=== PATIENT | male | born 1950 | race Caucasian/White ===

== ENCOUNTER 2017-02-24 15:07 | Emergency (ER) | payer BC, OTHER ==
[2017-02-24 15:22] VITALS: TEMP 97.8; BMI 31.0
--- NOTE | 2017-02-24 15:26 | PDOC ---
History of Present Illness - General Chief Complaint: Pain, Acute Stated Complaint: KIDNEY STONES Time Seen by Provider: 02/24/17 15:25 History Source: Patient Exam Limitations: No Limitations - History of Present Illness Initial Comments: 02/24/17 15:26 CHIEF COMPLAINT: Flank pain HISTORY OF PRESENT ILLNESS: This is a 66-year-old male with a history of non- insulin-dependent diabetes, hypertension, and kidney stones (5 prior episodes, never required any intervention and was able to pass the stones on his own) the presents with flank pain typical of his usual renal colic. He had sudden onset of pain yesterday and it has since been waxing and waning. He denies nausea/ vomiting, fevers/chills, dysuria/hematuria, or any other symptoms. PCP is Dr. Farmer. Vital signs on arrival are unremarkable. REVIEW OF SYSTEMS: GENERAL/CONSTITUTIONAL: No fever or chills. No weakness. No weight change. HEAD, EYES, EARS, NOSE AND THROAT: No change in vision. No ear pain or discharge. No sore throat. CARDIOVASCULAR: No chest pain or palpitations. RESPIRATORY: No cough, wheezing, or shortness of breath. GASTROINTESTINAL: No nausea, vomiting, diarrhea or constipation. GENITOURINARY: See HPI. MUSCULOSKELETAL: No joint or muscle swelling or pain. No neck or back pain. SKIN: No rash or easy bruising. NEUROLOGIC: No headache, vertigo, loss of consciousness, or loss of sensation. PSYCHIATRIC: No depression or anxiety. ENDOCRINE: No increased thirst. No abnormal weight change. HEMATOLOGIC/LYMPHATIC: No anemia, easy bleeding, or history of blood clots. ALLERGIC/IMMUNOLOGIC: No hives or skin allergy. No latex allergy. PHYSICAL EXAM: GENERAL: The patient is awake, alert, and fully oriented, in no acute distress. HEAD: Normal with no signs of trauma. ENT: Pupils equal, round and reactive to light, extraocular movements intact, sclera anicteric, conjunctiva clear. Neck supple. LUNGS: Clear to auscultation bilaterally. Normal excursion. No respiratory distress or use of accessory muscles. CV: RRR, S1/S2, no MRG. Cap refill < 2 sec. ABDOMEN: Soft, non-distended, non-tender anteriorly, mild left CVA tenderness. EXTREMITIES: Normal range of motion, no edema. NEUROLOGICAL: Normal speech, normal gait. CN II-XII grossly intact. PSYCH: Normal mood, normal affect. SKIN: Warm, dry, normal turgor, no rashes or lesions noted. Past History - Past Medical History Allergies/Adverse Reactions: Allergies Allergy/AdvReac Type Severity Reaction Status Date / Time latex Allergy Mild Rash Verified 02/24/17 15:22 No Known Drug Allergies Allergy Verified 02/24/17 15:22 Home Medications: Ambulatory Orders Atenolol [Tenormin] 25 mg PO HS 04/21/12 Cholecalciferol (Vitamin D3) [Vitamin D] 7,000 unit PO DAILY 04/21/12 Fenofibrate 160 mg PO HS 04/21/12 Simvastatin [Zocor] 20 mg PO HS 04/21/12 Metformin HCl [Metformin HCl ER] 500 mg PO BID 02/24/17 Tamsulosin HCl [Flomax -] 0.4 mg PO DAILY #5 cap.er.24h 02/24/17 Anemia: No Asthma: No Cancer: Yes (SKIN CANCER) Cardiac Disorders: No CVA: No COPD: No CHF: No Dementia: No Diabetes: No GI Disorders: No Disorders: No HTN: Yes Hypercholesterolemia: Yes Liver Disease: No Seizures: No Thyroid Disease: No - Surgical History Abdominal Surgery: No Appendectomy: No Cardiac Surgery: No Cholecystectomy: No Lung Surgery: No Neurologic Surgery: No Orthopedic Surgery: No - Psycho/Social/Smoking Cessation Hx Suicidal Ideation: No Smoking History: Never smoked Have you smoked in the past 12 months: No If you are a former smoker, when did you quit?: 26 YRS AGO Information on smoking cessation initiated: No Hx Alcohol Use: No Drug/Substance Use Hx: No Substance Use Type: None *Physical Exam - Vital Signs Last Vital Signs Temp Pulse Resp BP Pulse Ox 97.8 F 81 18 143/81 100 02/24/17 15:16 02/24/17 15:16 02/24/17 15:16 02/24/17 15:16 02/24/17 15:16 ED Treatment Course - LABORATORY CBC & Chemistry Diagram: 02/24/17 15:53 02/24/17 15:53 Medical Decision Making - Medical Decision Making 02/24/17 19:22 A/P: 66 year old male with flank pain typical of prior episodes of renal colic. 1. Toradol 30mg IVP 2. UA/culture, basic labs 3. Renal u/s U/s reviewed and interpreted by Imaging chief [facility]: no hydronephrosis. Will dc with analgesia and urology followup. Return precautions reviewed. *DC/Admit/Observation/Transfer Diagnosis at time of Disposition: Flank pain - Discharge Dispostion Admit: No - Prescriptions Prescriptions: Tamsulosin HCl [Flomax -] 0.4 mg PO DAILY #5 cap.er.24h - Referrals Referrals: Dawit Fletcher MD [Staff Physician] - Call tomorrow (Urology) - Patient Instructions Printed Discharge Instructions: DI for Kidney Stones Additional Instructions: -Rest and stay well-hydrated -Take Percocet as prescribed for pain and Flomax as prescribed to help the stone pass -Follow up with urology (contact information enclosed) -Return here for uncontrolled pain, fever, or any other concerning symptoms - Post Discharge Activity Work/School Note: Back to Work
[2017-02-24 16:00] LABS: BASOPHIL 0.8 % (0-2.0); EOSINOPHIL 2.5 % (0-4.5); MCH 29.4 pg (25.7-33.7); MCHC 34.9 g/dl (32.0-35.9); MEAN CELL VOLUME 84.3 fl (80-96); MEAN PLT VOLUME 9.6 fl (7.5-11.1); NEUTROPHILS 60.1 % (42.8-82.8); PLATELET COUNT 218 K/MM3 (134-434); RDW 13.8 % (11.9-15.9); WHITE BLOOD COUNT 8.8 K/mm3 (4.0-10.0)
[2017-02-24] MEDS ORDERED: TAMSULOSIN HCL 0.4 MG CAP.ER.24H (FP) PO ONE (16:01)
[2017-02-24] MEDS ORDERED: KETOROLAC TROMETHAMINE 30 MG/1 ML VIAL IVPUSH ONE (16:06)
[2017-02-24] MEDS ORDERED: TAMSULOSIN HCL 0.4 MG CAP.ER.24H (FP) ONE (16:07)
[2017-02-24] MEDS ORDERED: KETOROLAC TROMETHAMINE 30 MG/1 ML VIAL ONE (16:07)
[2017-02-24 16:14] LABS: URINE APPEARANCE CLEAR; URINE BILIRUBIN NEGATIVE (NEGATIVE); URINE BLOOD 3+ (NEGATIVE); URINE COLOR YELLOW; URINE GLUCOSE (UA) NEGATIVE (NEGATIVE); URINE KETONE NEGATIVE (NEGATIVE); URINE LEUK ESTERASE NEGATIVE (NEGATIVE); URINE NITRITE NEGATIVE (NEGATIVE); URINE PROTEIN NEGATIVE (NEGATIVE); URINE UROBILINOGEN NEGATIVE mg/dL (0.2-1.0)
[2017-02-24 16:25] LABS: ALBUMIN 4.2 g/dl (3.4-5.0); ALK PHOS 57 U/L (45-117); ANION GAP 11 (8-16); BILIRUBIN,TOTAL 0.7 mg/dL (0.2-1.0); CALCIUM 10.3 mg/dL (8.5-10.1); CO2 28 mmol/L (21-32); CREATININE 1.2 mg/dL (0.7-1.3); GLUCOSE,RANDOM 180 mg/dL (74-106); SGOT/AST 21 U/L (15-37); SGPT/ALT 31 U/L (12-78); TOT PROT 7.7 g/dl (6.4-8.2)
[2017-02-24 16:26] LABS: URINE MUCUS RARE; URINE RBC 75 /hpf (0-3); URINE WBC 3 /hpf (3-5)
[2017-02-24] MEDS ORDERED: SODIUM CHLORIDE 1,000 ML IV SCH (17:00)
[2017-02-24 19:33] VITALS: BP 138/72; PULSE 72
== END 2017-02-24 19:39 | disposition home or self-care (01) ==
LOC: JER 15:07
PROC: 3E0333Z Introduction of Anti-inflammatory into Peripheral Vein, Percutaneous Approach (ICD-10-PCS; principal; 2017-02-24)
PROC: 3E0337Z Introduction of Electrolytic and Water Balance Substance into Peripheral Vein, Percutaneous Approach (ICD-10-PCS; 2017-02-24)
DX: R10.32 Left lower quadrant pain (principal); Z87.442 Personal history of urinary calculi; E11.9 Type 2 diabetes mellitus without complications; I10 Essential (primary) hypertension
CPT/HCPCS: 36415; 76775-TC; 80053; 81003; 81015; 85025; 87086; 99283-25

== ENCOUNTER 2017-02-25 19:01 | Emergency (ER) | payer BC ==
[2017-02-25 19:04] VITALS: BP 129/72; PULSE 82; TEMP 97; BMI 31.0
--- NOTE | 2017-02-25 20:19 | PDOC ---
History of Present Illness - General Chief Complaint: Pain, Acute Stated Complaint: PAIN, ACUTE Time Seen by Provider: 02/25/17 20:17 - History of Present Illness Initial Comments: 02/25/17 20:41 Mr. Quigley is a 66 year old male with a significant past medical history of NIDDM, HTN, and frequent kidney stones who presents to the emergency department with flank pain typical of his usual colic. He had onset of pain 2 days ago that has been more or less constant. He presented to the ED yesterday for this same problem but said he did not achieve much relief and was nauseated with 2 instances of vomit today. He also reports being currently chilled. The patient denies chest pain, shortness of breath, headache and dizziness. Denies fever, diarrhea and constipation. Denies dysuria, frequency, urgency and hematuria. Allergies: latex Past surgical history: Denies Social history: approximate 17 pack year smoking history (former smoker) REHANAD - Talib Farmer Past History - Past Medical History Allergies/Adverse Reactions: Allergies Allergy/AdvReac Type Severity Reaction Status Date / Time latex Allergy Mild Rash Verified 02/25/17 19:05 No Known Drug Allergies Allergy Verified 02/25/17 19:05 Home Medications: Ambulatory Orders Atenolol [Tenormin] 25 mg PO HS 04/21/12 Cholecalciferol (Vitamin D3) [Vitamin D] 7,000 unit PO DAILY 04/21/12 Fenofibrate 160 mg PO HS 04/21/12 Simvastatin [Zocor] 20 mg PO HS 04/21/12 Metformin HCl [Metformin HCl ER] 500 mg PO BID 02/24/17 Oxycodone HCl/Acetaminophen [Percocet 5-325 mg Tablet] 1 tab PO Q6H #30 tablet MDD 4 02/24/17 Tamsulosin HCl [Flomax -] 0.4 mg PO DAILY #5 cap.er.24h 02/24/17 Ondansetron HCl [Zofran] 4 mg PO PRN PRN #20 tablet 02/25/17 Anemia: No Asthma: No Cancer: Yes (SKIN CANCER) Cardiac Disorders: No CVA: No COPD: No CHF: No Dementia: No Diabetes: No GI Disorders: No Disorders: No HTN: Yes Hypercholesterolemia: Yes Liver Disease: No Seizures: No Thyroid Disease: No - Surgical History Abdominal Surgery: No Appendectomy: No Cardiac Surgery: No Cholecystectomy: No Lung Surgery: No Neurologic Surgery: No Orthopedic Surgery: No - Psycho/Social/Smoking Cessation Hx Suicidal Ideation: No Smoking History: Never smoked Have you smoked in the past 12 months: No If you are a former smoker, when did you quit?: 26 YRS AGO Information on smoking cessation initiated: No Hx Alcohol Use: No Drug/Substance Use Hx: No Substance Use Type: None Review of Systems - Review of Systems Comments:: 02/25/17 21:22 GENERAL/CONSTITUTIONAL: +Current chills. No fever. No weakness. HEAD, EYES, EARS, NOSE AND THROAT: No change in vision. No ear pain or discharge. No sore throat. CARDIOVASCULAR: No chest pain or shortness of breath RESPIRATORY: No cough, wheezing, or hemoptysis. GASTROINTESTINAL: +Nausea with 2 episodes of vomiting today. No diarrhea or constipation. GENITOURINARY: +Left flank pain with some LLQ pain. No dysuria, frequency, or change in urination. MUSCULOSKELETAL: No joint or muscle swelling or pain. No neck or back pain. SKIN: No rash NEUROLOGIC: No headache, vertigo, loss of consciousness, or change in strength/ sensation. ENDOCRINE: No increased thirst. No abnormal weight change HEMATOLOGIC/LYMPHATIC: No anemia, easy bleeding, or history of blood clots. ALLERGIC/IMMUNOLOGIC: No hives or skin allergy. *Physical Exam - Vital Signs Last Vital Signs Temp Pulse Resp BP Pulse Ox 97 F L 82 18 129/72 98 02/25/17 19:02 02/25/17 19:02 02/25/17 19:02 02/25/17 19:02 02/25/17 19:02 - Physical Exam Comments: 02/25/17 21:25 GENERAL: Awake, alert, and fully oriented, in no acute distress HEAD: No signs of trauma, normocephalic, atraumatic EYES: PERRLA, EOMI, sclera anicteric, conjunctiva clear ENT: Auricles normal inspection, hearing grossly normal, nares patent, oropharynx clear without exudates. Moist mucosa NECK: Normal ROM, supple, no lymphadenopathy, JVD, or masses LUNGS: No distress, speaks full sentences, clear to auscultation bilaterally HEART: Regular rate and rhythm, normal S1 and S2, no murmurs, rubs or gallops, peripheral pulses normal and equal bilaterally. ABDOMEN: +Some tenderness to L flank and LLQ. Normoactive bowel sounds. No guarding, no rebound. No masses EXTREMITIES: Normal inspection, Normal range of motion, no edema. No clubbing or cyanosis. NEUROLOGICAL: Cranial nerves II through XII grossly intact. Normal speech, normal gait, no focal sensorimotor deficits SKIN: Warm, Dry, normal turgor, no rashes or lesions noted. ED Treatment Course - LABORATORY CBC & Chemistry Diagram: 02/25/17 20:49 02/25/17 20:49 Medical Decision Making - Medical Decision Making 02/25/17 21:19 Mr. Quigley represents after the percocet he was proscribed yesterday for pain control only made him more nauseated today. Repeated CBC/CMP/UA as well as ordered 1 L NS and Zofran for nausea. Reports some alleviation of his nausea and pain post zofran. Currently awaiting urine for UA. UA unimpressive. Pain subsided. Will d/c to home with PO zofran for nausea control. *DC/Admit/Observation/Transfer Diagnosis at time of Disposition: Flank pain - Discharge Dispostion Disposition: HOME - Referrals Referrals: Talib Farmer MD [Primary Care Provider] - - Patient Instructions Printed Discharge Instructions: DI for Flank Pain Additional Instructions: Please return if any fever, increase in pain/nausea, or any other concerning symptoms. - Attestations Physician Attestion: 02/25/17 22:34 I, Dr. Cristóbal Hull, attest that this document has been prepared under my direction and personally reviewed by me in its entirety. I further attest, that it accurately reflects all work, treatment, procedures and medical decision -making performed by me.
[2017-02-25] MEDS ORDERED: SODIUM CHLORIDE 1,000 ML IV STA (20:39)
[2017-02-25] MEDS ORDERED: ONDANSETRON 4 MG/2 ML VIAL IVPUSH ONE (20:39)
[2017-02-25] MEDS ORDERED: KETOROLAC TROMETHAMINE 30 MG/1 ML VIAL IVPUSH ONE (20:39)
[2017-02-25] MEDS ORDERED: KETOROLAC TROMETHAMINE 30 MG/1 ML VIAL ONE (20:49)
[2017-02-25] MEDS ORDERED: ONDANSETRON 4 MG/2 ML VIAL ONE (20:49)
[2017-02-25 21:02] LABS: BASOPHIL 0.2 % (0-2.0); EOSINOPHIL 0.4 % (0-4.5); MCH 29.3 pg (25.7-33.7); MCHC 34.7 g/dl (32.0-35.9); MEAN CELL VOLUME 84.3 fl (80-96); MEAN PLT VOLUME 9.3 fl (7.5-11.1); NEUTROPHILS 83.5 % (42.8-82.8); PLATELET COUNT 181 K/MM3 (134-434); RDW 13.9 % (11.9-15.9); WHITE BLOOD COUNT 10.3 K/mm3 (4.0-10.0)
[2017-02-25 21:27] LABS: ALBUMIN 3.7 g/dl (3.4-5.0); ALK PHOS 41 U/L (45-117); ANION GAP 7 (8-16); BILIRUBIN,TOTAL 0.8 mg/dL (0.2-1.0); CALCIUM 9.4 mg/dL (8.5-10.1); CO2 30 mmol/L (21-32); CREATININE 1.8 mg/dL (0.7-1.3); GLUCOSE,RANDOM 116 mg/dL (74-106); SGOT/AST 21 U/L (15-37); SGPT/ALT 24 U/L (12-78); TOT PROT 6.9 g/dl (6.4-8.2)
[2017-02-25 21:48] LABS: URINE APPEARANCE CLEAR; URINE BILIRUBIN NEGATIVE (NEGATIVE); URINE BLOOD NEGATIVE (NEGATIVE); URINE COLOR YELLOW; URINE GLUCOSE (UA) NEGATIVE (NEGATIVE); URINE KETONE NEGATIVE (NEGATIVE); URINE LEUK ESTERASE NEGATIVE (NEGATIVE); URINE NITRITE NEGATIVE (NEGATIVE); URINE PROTEIN NEGATIVE (NEGATIVE); URINE UROBILINOGEN NEGATIVE mg/dL (0.2-1.0)
--- NOTE | 2017-02-25 22:31 | PDOC ---
Attending Attestation - Resident Resident Name: Cristóbal Hull - ED Attending Attestation I have performed the following: I have examined & evaluated the patient, The case was reviewed & discussed with the resident, I agree w/resident's findings & plan, Exceptions are as noted - HPI HPI: 02/25/17 22:24 66 M with DM, HTN presents to ER with nausea and vomiting after taking percocet today. Pt has h/o kidney stones and is currently being treated for one. He reports L flank pain since 2 days ago. He states that the pain has been coming and going, has migrated from back to L side now. Denies F/C. Denies dysuria. Pt was prescribed percocet in this ER yesterday for his pain. However, he notes he always have adverse reactions to narcotic pain medications, often becoming nauseous and vomiting when he takes them. Pt reports that he took a percocet today and shortly after became nauseous and vomited. He attempted to drink water but could not keep anything down. Pt denies abdominal pain at this time. Denies CP/SOB. - Physicial Exam PE: 02/25/17 22:31 "GENERAL: Awake, alert, and fully oriented, in no acute distress HEAD: No signs of trauma EYES: PERRLA, EOMI, sclera anicteric, conjunctiva clear ENT: Auricles normal inspection, hearing grossly normal, nares patent, oropharynx clear without exudates. Moist mucosa NECK: Normal ROM, supple, no lymphadenopathy, JVD, or masses LUNGS: Breath sounds clear to auscultation bilaterally. No wheezes, and no crackles HEART: Regular rate and rhythm, normal S1 and S2, no murmurs, rubs or gallops ABDOMEN: Soft, nontender, normoactive bowel sounds. No guarding, no rebound. No masses, mild L CVAT EXTREMITIES: Normal range of motion, no edema. No clubbing or cyanosis. No cords, erythema, or tenderness NEUROLOGICAL: Cranial nerves II through XII grossly intact. Normal speech, normal gait SKIN: Warm, Dry, normal turgor, no rashes or lesions noted. " - Medical Decision Making 02/25/17 22:31 66M with DM, HTN, kidney stones presents with N/V in the context of taking percocet for kidney stone. Likely medication side effect. Low suspicion for any acute intraabdominal process, as pt's abdomen is completely benign. Will check UA to r/o infection, check labs to assess kidney function. - Labs, UA - IVF, zofran, toradol
== END 2017-02-25 22:49 | disposition home or self-care (01) ==
LOC: JER 19:01
PROC: 3E033GC Introduction of Other Therapeutic Substance into Peripheral Vein, Percutaneous Approach (ICD-10-PCS; principal; 2017-02-25)
PROC: 3E0333Z Introduction of Anti-inflammatory into Peripheral Vein, Percutaneous Approach (ICD-10-PCS; 2017-02-25)
PROC: 3E0337Z Introduction of Electrolytic and Water Balance Substance into Peripheral Vein, Percutaneous Approach (ICD-10-PCS; 2017-02-25)
DX: R10.9 Unspecified abdominal pain (principal); I10 Essential (primary) hypertension; E11.9 Type 2 diabetes mellitus without complications; E78.00 Pure hypercholesterolemia, unspecified; Z85.828 Personal history of other malignant neoplasm of skin; Z87.442 Personal history of urinary calculi; Z91.040 Latex allergy status; Z79.84 Long term (current) use of oral hypoglycemic drugs
CPT/HCPCS: 36415; 80053; 81003; 85025; 99281-25

== ENCOUNTER 2018-09-11 19:31 | Emergency (ER) | payer BC ==
[2018-09-11 19:36] VITALS: BP 127/61; PULSE 102; TEMP 99.2; BMI 28.8
[2018-09-11] MEDS ORDERED: ONDANSETRON *ODT* 4 MG TABLET SL ONE (20:31)
[2018-09-11] MEDS ORDERED: ONDANSETRON *ODT* 4 MG TABLET ONE (20:33)
--- NOTE | 2018-09-11 20:33 | PDOC ---
History of Present Illness - General Chief Complaint: Cold Symptoms Stated Complaint: flu like symptoms Time Seen by Provider: 09/11/18 19:48 History Source: Patient Exam Limitations: No Limitations - History of Present Illness Initial Comments: 09/11/18 20:31 HISTORY OF PRESENT ILLNESS: This 65-year-old male with past medical history of hypertension, diabetes, hyperlipidemia presents emergency department for evaluation of dry cough, sore throat, headaches, body aches and nausea for the past 2 days. Patient reports taking in Tylenol Cold and flu which was minimal relief of symptoms. Patient reports subjective fevers but had not checked his temperature. Patient is afebrile here but has a heart rate of 102. No recent travel or sick contacts. PAST MEDICAL HISTORY: see HPI SURGICAL HISTORY: Denies ALLERGIES: No known drug allergies; Latex REVIEW OF SYSTEMS General/Constitutional: +fever. Denies weakness, weight change. HEENT: Denies change in vision. Denies ear pain or discharge. +sore throat. Cardiovascular: Denies chest pain or shortness of breath. Respiratory: Moist productive cough. Denies wheezing, or hemoptysis. Gastrointestinal: Denies vomiting, diarrhea or constipation. Denies rectal bleeding. (+)nausea Genitourinary: Denies dysuria, frequency, or change in urination. Musculoskeletal: +myalgias. Denies neck or back pain. Skin and breasts: Denies rash or easy bruising. Neurologic: Denies headache, vertigo, loss of consciousness, or loss of sensation. Psychiatric: Denies depression or anxiety. Endocrine: Denies increased thirst. Denies abnormal weight change. Hematologic/Lymphatic: Denies anemia, easy bleeding, or history of blood clots. Allergic/Immunologic: Denies hives or skin allergy. Denies latex allergy. PHYSICAL EXAM General Appearance: Well-appearing, appropriately dressed. No apparent distress , no intoxication. HEENT: EOMI, PERRLA, normal voice, TMs retracted bilaterally. No conjunctival pallor. No photophobia, scleral icterus. Oropharynx erythematous without lesions or exudate. Cobblestoning noted in the posterior. No nasal discharge present. Neck: Supple. Trachea midline. No tenderness, rigidity, carotid bruit, stridor , or thyromegaly. Nontender anterior cervical lymphadenopathy present. Respiratory/Chest: Lungs CTAB. No shortness of breath, chest tenderness, respiratory distress, accessory muscle use. No crackles, rales, rhonchi, stridor , wheezing, dullness Cardiovascular: RRR. S1, S2. No JVD, murmur, bradycardia, tachycardia. Vascular Pulses: Dorsalis-Pedis (R): 2+, Dorsalis-Pedis (L): 2+ Gastrointestinal/Abdominal: Normal bowel sounds. Abdomen soft, non-distended. No tenderness or rebound tenderness. No organomegaly, pulsatile mass, guarding, hernia, hepatomegaly, splenomegaly. Musculoskeletal/Extremities: Normal inspection. FROM of all extremities, normal capillary refill. Pelvis Stable. No CVA tenderness. No tenderness to extremities, pedal edema, swelling, erythema or deformity. Integumentary: Appropriate color, dry, warm. No cyanosis, erythema, jaundice or rash Neurologic: director of housing and energy services II-XII intact. Fully oriented, alert. Appropriate mood/affect. Motor strength 5/5. No appreciable EOM palsy, facial droop or sensory deficit. Past History - Past Medical History Allergies/Adverse Reactions: Allergies Allergy/AdvReac Type Severity Reaction Status Date / Time latex Allergy Mild Rash Verified 02/25/17 19:05 No Known Drug Allergies Allergy Verified 02/25/17 19:05 Home Medications: Ambulatory Orders Atenolol [Tenormin] 25 mg PO HS 04/21/12 Cholecalciferol (Vitamin D3) [Vitamin D] 7,000 unit PO DAILY 04/21/12 Fenofibrate 160 mg PO HS 04/21/12 Simvastatin [Zocor] 20 mg PO HS 04/21/12 Oxycodone HCl/Acetaminophen [Percocet 5-325 mg Tablet] 1 tab PO Q6H #30 tablet MDD 4 02/24/17 Tamsulosin HCl [Flomax -] 0.4 mg PO DAILY #5 cap.er.24h 02/24/17 metFORMIN HCL [Metformin HCl ER] 500 mg PO BID 02/24/17 Ondansetron HCl [Zofran] 4 mg PO PRN PRN #20 tablet 09/11/18 Oseltamivir Phosphate [Tamiflu -] 75 mg PO BID #10 capsule 09/11/18 Anemia: No Asthma: No Cancer: Yes (SKIN CANCER) Cardiac Disorders: No CVA: No COPD: Yes CHF: No Dementia: No Diabetes: No GI Disorders: No Disorders: No HTN: Yes Hypercholesterolemia: Yes Liver Disease: No Seizures: No Thyroid Disease: No - Surgical History Abdominal Surgery: No Appendectomy: No Cardiac Surgery: No Cholecystectomy: No Lung Surgery: No Neurologic Surgery: No Orthopedic Surgery: No - Suicide/Smoking/Psychosocial Hx Smoking History: Never smoked Have you smoked in the past 12 months: No If you are a former smoker, when did you quit?: 26 YRS AGO Information on smoking cessation initiated: No Hx Alcohol Use: No Drug/Substance Use Hx: No Substance Use Type: None *Physical Exam - Vital Signs Last Vital Signs Temp Pulse Resp BP Pulse Ox 99.2 F 102 H 16 127/61 100 09/11/18 19:34 09/11/18 19:34 09/11/18 19:34 09/11/18 19:34 09/11/18 19:34 Moderate Sedation - Procedure Monitoring Vital Signs: Procedure Monitoring Vital Signs Temperature 99.2 F 09/11/18 19:34 Pulse Rate 102 H 09/11/18 19:34 Respiratory Rate 16 09/11/18 19:34 Blood Pressure 127/61 09/11/18 19:34 O2 Sat by Pulse Oximetry (%) 100 09/11/18 19:34 Medical Decision Making - Medical Decision Making 09/11/18 20:33 A/P: 67-year-old male with influenza-like illness Zofran 4 mg ODT Oral trial Reassess 09/11/18 21:01 Patient was able to tolerate oral fluids without difficulty. I will discharge the patient home with prescription for Tamiflu and a short course of Zofran given the patient's age. Discharge home I discussed the physical exam findings, ancillary test results and final diagnoses with the patient. I answered all of the patient's questions. The patient was satisfied with the care received and felt comfortable with the discharge plan and treatment plan. The patient will call their primary care physician within 24 hours to arrange follow-up and will return to the Emergency Department with any new, persistent or worsening symptoms. *DC/Admit/Observation/Transfer Diagnosis at time of Disposition: Influenza-like illness - Discharge Dispostion Disposition: HOME Condition at time of disposition: Stable Decision to Admit order: No - Prescriptions Prescriptions: Ondansetron HCl [Zofran] 4 mg PO PRN PRN #20 tablet PRN Reason: Nausea Oseltamivir Phosphate [Tamiflu -] 75 mg PO BID #10 capsule - Referrals Referrals: Talib Farmer MD [Primary Care Provider] - - Patient Instructions Additional Instructions: Rest, drink lots of fluids: Teas, water, soups, Pedialyte Saltwater gargles Steamy showers/seem to face break up mucus Old-fashioned treatments help! Avoid contact with others until fevers and cough resolved as this is very contagious Lots of handwashing and good hygiene Continue [id number] medications for symptomatic relief Tylenol or Motrin for fever and pain Take all of Tamiflu as directed: 1 tab every 12 hours for 5 days Followup with private physician in one to 2 days as needed or if worsening Return to emergency department for worsened symptoms, fevers, dehydration Influenza takes between 5 and 7 days for resolution To not participate in any activity, work, or school until fevers and cough are gone for at least one day - Post Discharge Activity
== END 2018-09-11 21:05 | disposition home or self-care (01) ==
LOC: JERFT 19:31
DX: J11.1 Influenza due to unidentified influenza virus with other respiratory manifestations (principal); I10 Essential (primary) hypertension; E11.9 Type 2 diabetes mellitus without complications; Z79.84 Long term (current) use of oral hypoglycemic drugs; E78.00 Pure hypercholesterolemia, unspecified; E78.5 Hyperlipidemia, unspecified; Z85.828 Personal history of other malignant neoplasm of skin
CPT/HCPCS: 99281-25; Q0162

== ENCOUNTER 2020-12-03 17:00 | Emergency (ER) | payer BC ==
[2020-12-03 17:12] VITALS: BP 125/77; PULSE 95; TEMP 97.7; BMI 61.2
[2020-12-03] MEDS ORDERED: LORazepam 2 MG TABLET PO ONE (17:45)
[2020-12-03] MEDS ORDERED: LORazepam 0.5 MG TABLET PO ONE (18:15)
[2020-12-03 18:44] LABS: ALBUMIN 4.3 g/dl (3.4-5.0)
[2020-12-03 18:48] LABS: BILIRUBIN,DIRECT 0.2 mg/dL (0.0-0.2)
[2020-12-03 18:50] LABS: BILIRUBIN,TOTAL 0.6 mg/dL (0.2-1); TOT PROT 7.9 g/dl (6.4-8.2)
== END 2020-12-03 19:36 | disposition home or self-care (01) ==
LOC: JERFT 17:00 → JER 17:00 → JERFT 19:36
DX: F41.9 Anxiety disorder, unspecified (principal); H93.11 Tinnitus, right ear
CPT/HCPCS: 36415; 80076; 80307; 99283-25

== ENCOUNTER 2024-05-13 04:40 | Day surgery (SDC) | payer OTHER ==
[2024-05-07 15:35] VITALS: BMI 28.9
[2024-05-13 07:22] VITALS: TEMP 97.5
[2024-05-13 08:20] VITALS: RESP 18
[2024-05-13 08:48] VITALS: BP 110/64
[2024-05-13 09:25] VITALS: PULSE 62
== END 2024-05-13 09:10 | disposition home or self-care (01) ==
LOC: JASU-ENDO 04:40
PROVIDERS: ATTEND Internal Medicine Gastroenterology
PROC: 0DJD8ZZ Inspection of Lower Intestinal Tract, Via Natural or Artificial Opening Endoscopic (ICD-10-PCS; principal; 2024-05-13 08:00)
DX: Z12.11 Encounter for screening for malignant neoplasm of colon (principal); K57.30 Diverticulosis of large intestine without perforation or abscess without bleeding; Z86.0100 Personal history of colon polyps, unspecified
CPT/HCPCS: 82962